=== PATIENT | female | born 1995 | race Hispanic/Latino ===

== ENCOUNTER 2017-03-04 00:46 | Observation (INO) | payer BC, MEDICAID ==
[~2017-03-04 00:46] MED LIST: LEVO100T4 PO; PNV71COM3 PO
[2017-03-04 01:48] LABS: BILIRUBIN,URINE Negative (NEGATIVE); COLOR,URINE Yellow (YELLOW); GLUCOSE, URINE (UA) Negative (NEGATIVE); KETONES,URINE >=160 mg/dL (NEGATIVE); LEUKOCYTE ESTERASE ,URINE Moderate (NEGATIVE); NITRATE,URINE Negative (NEGATIVE); OCCULT BLOOD,URINE Negative (NEGATIVE); PH,URINE 6.5 (5.0-8.0); PROTEIN,URINE Negative (NEGATIVE)
[2017-03-04] MEDS ORDERED: LACTATED RINGERS 1000ML 1,000 ML IV PRN (01:51)
[2017-03-04] MEDS ORDERED: ACETAMINOPHEN EXTRA STRENGTH 500 MG TABLET PO PRN (02:00)
[2017-03-04] MEDS ORDERED: ONDANSETRON HCL 4 MG/2 ML 8 MG in SODIUM CHLORIDE 0.9% 50 ML IV PRN (02:00)
[2017-03-04] MEDS ORDERED: ACETAMINOPHEN 325 MG TAB PO PRN (02:00)
[2017-03-04] MEDS ORDERED: LACTATED RINGERS 1000ML 1,000 ML IV SCH (02:00)
[2017-03-04 02:16] LABS: APPEARANCE,URINE SLIGHTLY CLOUDY (CLEAR)
[2017-03-04 02:17] LABS: BACTERIA,URINE Rare /HPF (None Seen); RBC,URINE None Seen /HPF (0-1); SQUAMOUS EPITHELIAL CELL,UR Moderate /LPF (0-2)
[2017-03-04 02:55] LABS: HEMATOCRIT 35.9 % (36-48); MEAN CORPUSCULAR HGB CONC 33.5 g/dL (32.0-36.0); MEAN CORPUSCULAR VOLUME 92.6 fL (79-99); PLATELET COUNT (AUTO) 185 K/uL (130-400); RED BLOOD CELL COUNT(AUTO) 3.88 MIL/uL (4.00-5.50); RED CELL DISTRIBUTION WIDTH 13.1 % (11.0-15.5); WHITE BLOOD COUNT (AUTO) 14.7 K/uL (4.8-10.8)
[2017-03-04 03:02] LABS: CREATININE 0.4 mg/dL (0.5-1.5); POTASSIUM 3.4 mmol/L (3.5-5.1)
[2017-03-04 03:06] LABS: ALBUMIN 2.8 g/dL (3.5-5.0); BILIRUBIN,TOTAL 0.6 mg/dL (0.2-1.0); TOTAL PROTEIN, SERUM 6.6 g/dL (6.0-8.3)
[2017-03-04] MEDS ORDERED: ONDANSETRON HCL 4 MG/2 ML VIAL ONE (03:13)
[2017-03-04] MEDS ORDERED: DiphenhydrAMINE HCL 50 MG/ML VIAL IM SCH (04:15)
[2017-03-04] MEDS ORDERED: DiphenhydrAMINE HCL 50 MG/ML VIAL ONE (04:18)
[2017-03-04] MEDS ORDERED: TERBUTALINE SULFATE VIAL 1MG/ML SQ ONE (05:41)
[2017-03-04] MEDS ORDERED: TERBUTALINE SULFATE VIAL 1MG/ML SQ SCH (05:45)
== END 2017-03-04 07:40 | disposition home or self-care (01) ==
LOC: EDH 00:46 → LDH 00:57
PROVIDERS: ADMIT Obstetrics & Gynecology; ATTEND Obstetrics & Gynecology
DX: O26.893 Other specified pregnancy related conditions, third trimester (principal); R10.9 Unspecified abdominal pain; O21.2 Late vomiting of pregnancy; Z3A.34 34 weeks gestation of pregnancy
CPT/HCPCS: 36415; 80053; 81001; 85027; 87804 ×2; 96372; 99285; G0378 ×7; J1200; J2405; J3105; J7120; 96360; 96361

== ENCOUNTER 2017-04-02 22:47 | Observation (INO) | payer BC, MEDICAID ==
[~2017-04-02] VITALS: Ht 162.6 cm; Wt 79.8 kg
[2017-04-02] MEDS ORDERED: LACTATED RINGERS 1000ML 1,000 ML IV SCH (23:00)
[2017-04-02] MEDS ORDERED: LACTATED RINGERS 1000ML 1,000 ML IV PRN (23:05)
[2017-04-02 23:15] LABS: APPEARANCE,URINE Cloudy (CLEAR); BILIRUBIN,URINE Negative (NEGATIVE); COLOR,URINE Yellow (YELLOW); GLUCOSE, URINE (UA) Negative (NEGATIVE); KETONES,URINE Negative (NEGATIVE); LEUKOCYTE ESTERASE ,URINE Moderate (NEGATIVE); NITRATE,URINE Negative (NEGATIVE); OCCULT BLOOD,URINE Trace (NEGATIVE); PH,URINE 6.5 (5.0-8.0); PROTEIN,URINE Negative (NEGATIVE); UROBILINOGEN,URINE 0.2 mg/dL (0.2-1.0)
[2017-04-02 23:31] LABS: BACTERIA,URINE Moderate /HPF (None Seen); RBC,URINE 0-1 /HPF (0-1); SQUAMOUS EPITHELIAL CELL,UR Many /LPF (0-2)
[2017-04-02 23:36] LABS: HEMATOCRIT 33.9 % (36-48); MEAN CORPUSCULAR HEMOGLOBIN 30.8 pg (27.0-33.0); MEAN CORPUSCULAR HGB CONC 34.4 g/dL (32.0-36.0); MEAN CORPUSCULAR VOLUME 89.4 fL (79-99); PLATELET COUNT (AUTO) 200 K/uL (130-400); RED CELL DISTRIBUTION WIDTH 13.3 % (11.0-15.5); WHITE BLOOD COUNT (AUTO) 9.7 K/uL (4.8-10.8)
[2017-04-03] MEDS ORDERED: OSELTAMIVIR PHOSPHATE 75 MG CAP PO SCH (01:15)
[2017-04-03] MEDS ORDERED: OSELTAMIVIR PHOSPHATE 75 MG CAP ONE (01:26)
[2017-04-03 07:24] LABS: RAPID PLASMA REAGIN NONREACTIVE (NONREACTIVE)
[2017-04-04 08:22] LABS: HEPATITIS Bs ANTIGEN SCREEN P Negative (Negative)
== END 2017-04-03 01:40 | disposition home or self-care (01) ==
LOC: EDH 22:47 → LDH 23:01
PROVIDERS: ADMIT Obstetrics & Gynecology; ATTEND Obstetrics & Gynecology
DX: O99.89 Other specified diseases and conditions complicating pregnancy, childbirth and the puerperium (principal); M54.9 Dorsalgia, unspecified; O26.893 Other specified pregnancy related conditions, third trimester; R10.30 Lower abdominal pain, unspecified; Z3A.38 38 weeks gestation of pregnancy
CPT/HCPCS: 36415; 81001; 85027; 86592; 86701; 86850; 86900; 86901; 87340; 87390; 87804 ×2; 99285; G0378 ×3; 96360; 96361

== ENCOUNTER 2017-04-06 14:08 | Observation (INO) | payer BC, MEDICAID ==
[~2017-04-06] VITALS: Ht 162.6 cm; Wt 78.0 kg
[2017-04-06 14:31] VITALS: BP 134/97
[2017-04-06 14:54] LABS: APPEARANCE,URINE Clear (CLEAR); BILIRUBIN,URINE Negative (NEGATIVE); COLOR,URINE Yellow (YELLOW); GLUCOSE, URINE (UA) Negative (NEGATIVE); KETONES,URINE Negative (NEGATIVE); LEUKOCYTE ESTERASE ,URINE Small (NEGATIVE); NITRATE,URINE Negative (NEGATIVE); OCCULT BLOOD,URINE Negative (NEGATIVE); PROTEIN,URINE Negative (NEGATIVE); UROBILINOGEN,URINE 0.2 mg/dL (0.2-1.0)
[2017-04-06 15:20] LABS: BACTERIA,URINE Rare /HPF (None Seen); RBC,URINE 0-1 /HPF (0-1)
[2017-04-06 15:21] LABS: SQUAMOUS EPITHELIAL CELL,UR Few /LPF (0-2)
== END 2017-04-06 15:45 | disposition home or self-care (01) ==
LOC: EDH 14:08 → LDH 14:18
PROVIDERS: ADMIT Obstetrics & Gynecology; ATTEND Obstetrics & Gynecology
DX: O26.893 Other specified pregnancy related conditions, third trimester (principal); N89.8 Other specified noninflammatory disorders of vagina; Z3A.38 38 weeks gestation of pregnancy
CPT/HCPCS: 76805; 81001; 82120; 99285; G0378

== ENCOUNTER 2017-04-27 22:17 | Emergency (ER) | payer BC, MEDICAID | END 2017-04-28 00:33 | disposition home or self-care (01) | LOC: EDH 22:17 | DX: O99.53 Diseases of the respiratory system complicating the puerperium (principal); J06.9 Acute upper respiratory infection, unspecified | CPT/HCPCS: 87804 ==

== ENCOUNTER 2024-07-11 14:48 | Emergency (ER) | payer BC, OTHER ==
[~2024-07-11] VITALS: Ht 162.6 cm; Wt 92.1 kg
[2024-07-11 14:51] VITALS: BP 139/93; PULSE 78; RESP 14; TEMP 98.3
[2024-07-11] MEDS ORDERED: 0.9%NACL 1000ML 1,000 ML IV STA (15:06)
--- NOTE | 2024-07-11 16:04 | NUR ---
ELOPED AT THIS TIME. SEEN LEAVING ER LOBBY.
--- NOTE | 2024-07-11 16:09 | ERN ---
ED Note History of Present Illness Stated Complaint: MISCARRAIGE,DIZZY,FAINTING Chief Complaint: Vaginal Bleeding Time Seen by MD: 14:54 Time Seen by Midlevel: 14:58 Dictation: 28-year-old female coming in with complaints of vaginal bleeding for two days. Patient states she was seen at an urgent Care and [place] and was told that she was having a miscarriage. Patient thinks he was about five weeks and has not follow up with the OBGYN. Denies any medical or surgical history. Allergies: Coded Allergies: No Known Drug Allergies (Verified Allergy, Unknown, 12/28/16) Home Meds Reported Medications Pnv76/Iron,Carb&Glu/FA/Dss/Dha (Citranatal Dha Pack) 1 Each Combo..pkg, 1 EACH PO DAILY, COMB.PKG 02/19/17 Levothyroxine Sodium (Synthroid 100 Mcg Tab) 100 Mcg Tablet, 100 MCG PO DAILY, TAB 02/19/17 Past Medical History Past Medical History: Hypothyroid Additional Past Medical Hx: MISCARRIAGE Surgical History: : 3 Para: 1 Aborts: 2 Review of System Dictation Constitutional: Negative for fever,chills, and weight loss Eyes: Negative for injury, pain,redness, and discharge ENT: Negative for injury,pain or swelling Cardiovascular: Negative for chest pain, palpitations, and edema Respiratory: Negative for shortness of breath, cough, and wheezing, Abdomen/GI: Negative for abdominal pain, nausea, vomiting, diarrhea, and constipation Back: Negative for injury and pain : Vaginal bleeding MS/Extremity: Negative for injury and deformity Skin: Negative for rash, and discoloration Neuro: Negative for headache, weakness, numbness, tingling, and seizure Psych: Negative for suicide ideation, homicidal ideation, and hallucinations Review of Systems: was completed Initial Vital Sign VS Vital Signs Date Time Temp Pulse Resp B/P (MAP) Pulse Ox O2 Delivery O2 Flow Rate FiO2 07/11/24 14:51 98.2 78 14 139/93 98 Room Air 0 Physical Exam Dictation General: awake, alert, NAD Head/Face: Normocephalic, atraumatic Eyes: PERRL, EOMI, vision at baseline ENT: oral cavity clear, TMs clear, no signs of infection Neck: Trachea midline, supple, no nuchal rigidity Cardiovascular: RRR, normal S1/S2, No MRGs, no JVD Respiratory: CTAB, no respiratory distress, No rales or wheezes Abdomen: Soft, non-tender, non-distended, normal bowel sounds, no guarding or rebound. Skin: Warm, dry, normal turgor, no rash MS/Extremity: Pulses equal, no cyanosis, neurovascular intact, FROM Neuro: COAx4, GCS 15, strength 5/5, CN 2-12 intact, normal cerebellar exam, normal gait, Psych: Normal behavior, mood, and affect normal Results (Laboratory/Radiology) Labs Reviewed?: Yes ED Course ED Course Orders Procedure Category Date Status Time Cbc With Differential LAB 07/11/24 Logged 15:06 Basic Metabolic Panel LAB 07/11/24 Logged 15:06 Hcg,Quantitative LAB 07/11/24 Logged 15:06 0.9%Nacl 1000ml (Ns PHA 07/11/24 Complete 1000ml) 15:06 Current Medications Medications (Trade) Dose Ordered Sig/Nadja Route PRN Reason Start Time Stop Time Status Last Admin Dose Admin Sodium Chloride 1,000 ml @ 1,000 mls/hr Q1H STAT IV 07/11/24 15:06 07/11/24 16:05 DC Vital Signs Date Time Temp Pulse Resp B/P (MAP) Pulse Ox O2 Delivery O2 Flow Rate FiO2 07/11/24 14:51 98.2 78 14 139/93 98 Room Air 0 Medical Decision Making MDM MDM: 28-year-old female coming in with complaints of vaginal bleeding for two days. Patient states she was seen at an urgent Care and [place] and was told that she was having a miscarriage. Patient thinks he was about five weeks and has not follow up with the OBGYN. Denies any medical or surgical history. Patient states yesterday her hCG was 69 at the urgent care. And did not see anything in the ultrasound. [id number] was notified by triage nurse the patient eloped. Differential diagnosis: Threatened , miscarriage, Rationale: Tests considered and ordered secondary to shared decision making include: Previous outside records reviewed: Old ER visits. Risk of complication and/or morbidity or mortality of patient management: None Medications-Per medication reconciliation Need for hospitalization: Patient does not meet criteria for hospitalization. Need for emergency major/minor surgery: No There are no social concerns with this patient. Prescription drug management Prescriptions will include symptomatic care Patient's prior external medical records from other ER visits were reviewed by me as indicated. Prior testing and results from previous visits were reviewed. Prior tests were taken into account with medical decision making and resource utilization, independent historian/historians were used to obtain complete medical history. I independently interpreted the test that were performed, results were reviewed by me and considered findings on radiology if ordered. Medical management and examination interpretation discussions were had by me with other qualified healthcare professionals as indicated for the patient's care. DX & DISP Disposition: Discharge Departure Impression: Primary Impression: Eloped from emergency department Condition: Stable Referrals: ABBE SEXTON MD (PCP) Time of Disposition: 16:08 I have reviewed the case, and I agree with, Diagnosis and Plan NILSA MIKE NP July 11, 2024 16:08
== END 2024-07-11 16:05 | disposition left against medical advice (07) ==
LOC: EDH 14:48
DX: O20.9 Hemorrhage in early pregnancy, unspecified (principal); O26.891 Other specified pregnancy related conditions, first trimester; R42 Dizziness and giddiness; E03.9 Hypothyroidism, unspecified; Z79.890 Hormone replacement therapy; Z3A.01 Less than 8 weeks gestation of pregnancy
CPT/HCPCS: 99281